=== PATIENT | female | born 1985 | race Caucasian/White ===

== ENCOUNTER 2019-10-29 12:30 | Outpatient (RCR) | payer OTHER, SELFPAY ==
--- NOTE | 2019-10-22 11:03 | PTOPEVAL ---
INITIAL PHYSICAL THERAPY EVALUATION and PLAN OF CARE Thank you for referring Camilla Mtz to [facility]. She will be seen 1x/wk x 4 wks. Please review, sign, date and return this plan of care JOLYNN. I agree with and certify that the following plan of care is medically necessary. Referring Physician Date Admitting Provider: Attending Provider: Dana Canada PA-C Referring Provider: DANA Outpatient Evaluation Start: 10/22/19 09:42 Freq: Status: Active Protocol: Document 10/22/19 09:35 GERRI (Rec: 10/22/19 10:45 GERRI [id number]) Therapy Assessment Status Assessment Status Assessment Status Evaluation Outpatient Past Medical History Past Medical History Source of Past Medical History Patient Neurological History Hx Migraine Yes Cardiovascular History Hx Hypertension Yes: during Respiratory History Hx Asthma Yes: patient reported seasonal allergy induced Gastrointestinal History Hx Gastrointestinal Disorders No Significant History Genitourinary History Hx Genitourinary Disorders No Significant History Musculoskeletal History Hx Scoliosis Yes: patient reported Endocrine History Hx Endocrine Disorders No Significant History Psychosocial History Hx Anxiety Yes Hx Depression Yes: zoloft Evaluation Information Problem Diagnosis separation of muscle, diastasis recti Onset felt immediately since daughter's , worsening last month Subjective Information Labor and delivery - didn't Query Text:As Reported By Patient/ feel any increase discomfort/ Family pain in abdomen with delivery - everything went fine. A week or so after delivery - general type of soreness - with bending, turning. Within last month - amplification of pain - even with light activities - usually with flexed posture - worse when leaning over daughter's pack and play. No change with sleeping pattern, mornings okay. During - pubic symphysis separation Prior Level of Function Activity Level (Last 3 Months) Occupation special education math teacher Hand Dominance Right Medications Home Meds (Include: OTC, RX, Vitamins, zoloft - post Herbals, Dose, Route,and Frequency)
--- NOTE | 2019-11-05 13:00 | PCPTNOTE ---
Camilla phoned yesterday to cancel all of her appointments due not liking to wear a mask - which is required. Return phone call was made in inform her that if we stayed in the treatment room, she would not have to wear the mask. No return reply has been received. Will await a few days, if still no reply - will discharge her from PT.
--- NOTE | 2019-11-12 08:21 | PCPTNOTE ---
PHYSICAL THERAPY DISCHARGE NOTE Admitting Provider: Attending Provider: Dana Canada PA-C Patient:Camilla Mtz Date of :1985 Camilla has not returned for any further treatments since 10/29/2019. She phoned 11/04/2019 to cancel her appointments due to inability to tolerate wearing a mask while in PT. I did phone her and let her know that she wouldn't have to wear the mask in the treatment room, but she has not returned to PT. Therefore she. will be discharged at this time. Patient?s initial visit was on 10/22/2019 09:30 and she had a total of 2 visits. The goals have been partially met. Thank you for referring Camilla to [facility]. Please review, sign, date and return this discharge summary JOLYNN. I have been updated about Camilla's current status and I agree with discharge from the above service at this time. Referring Physician Date
== END 2019-11-12 15:32 | disposition home or self-care (01) ==
LOC: ANHPT 12:30
PROVIDERS: PCP Family Medicine; Visit Provider Physician Assistant
DX: M62.08 Separation of muscle (nontraumatic), other site (principal)
CPT/HCPCS: 97110; 97161

== ENCOUNTER 2019-12-24 21:21 | Emergency (ER) | payer OTHER, SELFPAY ==
--- NOTE | ~2019-12-24 | CT_ITS ---
EXAMINATION: CT BRAIN W/O DATE: 12/24/2019 22:45 INDICATION: Daily headaches. TECHNIQUE: Computed tomography (CT) of the head was performed without intravenous contrast. The dose- length product was 605.33 mGy-cm. The mA was adjusted according to patient size. Iterative reconstruc tion technique was employed. COMPARISON: No prior studies for comparison. FINDINGS: Normal brain parenchymal volume for age. Normal conklin-white differentiation. No acute intrac ranial hemorrhage, infarction, mass or mass effect. No ventriculomegaly or midline shift. Midline sagittal images demonstrate a normal corpus callosum, c raniovertebral junction and sella turcica. Basilar cisterns are patent. Paranasal sinuses and mastoids are pneumatized. No depressed skull fractures. IMPRESSION: 1. No acute intracranial abnormality. Reviewed, dictated and finalized at location A.
[2019-12-24 21:32] VITALS: PULSE 84; RESP 18; TEMP 36.8; O2SAT 100
--- NOTE | 2019-12-24 22:06 | ED.HA ---
HPI - Headache General Chief Complaint: Headache Stated Complaint: CONNER for a month Time Seen by Provider: 12/24/19 22:06 Source: patient Mode of arrival: ambulatory Limitations: no limitations History of Present Illness HPI Narrative: Patient is a 34-year-old female who presents for evaluation of headache pain. Patient reports chronic, daily, severe headaches over the past month. These do not awaken her from sleep. She states she feels pain in the side of her temples that sometimes radiates to the back of her head. She denies current numbness, weakness, vision changes. No nausea or vomiting. Patient reports sensitivity to light and loud noises. Patient in the past has a history of migraine headaches, states she is set to follow with a neurologist at [facility] in [place], but does not have a follow-up appointment until February. Patient denies recent fall or trauma. No difficulty with ambulation. No thunderclap sensation to headache. No neck pain or fever. Patient states she recently saw an outpatient cover test which was negative. Related Data Home Medications Medication Instructions Recorded Confirmed sertraline 50 mg tablet 50 mg PO HS 10/09/19 norethindrone-e.estradiol-iron 1 tablet PO HS 12/24/19 [06/15 (28)] Allergies Allergy/AdvReac Type Severity Reaction Status Date / Time shellfish derived Allergy Intermediate HIVES Verified 12/24/19 21:28 Sulfa (Sulfonamide Allergy Unknown Skin Verified 12/24/19 21:28 Antibiotics) Reaction Review of Systems Review of Systems: Narrative: CONSTITUTIONAL: Denies fever, chills, or sweats. EYES: Denies visual changes, redness, or discharge. Reports sensitivity to light. ENT: Denies rhinorrhea, congestion, sore throat, or otalgia. CARDIOVASCULAR: Denies chest pain, palpitations, or edema. RESPIRATORY: Denies cough or dyspnea. GASTROINTESTINAL: Denies abdominal pain, nausea, vomiting, or diarrhea. GENITOURINARY: Denies dysuria or hematuria. SKIN: Denies rash or itching. MUSCULOSKELETAL: Denies back pain, joint pain, or myalgia. NEUROLOGIC: Reports headache, denies numbness, or weakness. [facility] Past Medical History Medical History Anxiety Depression Morbid obesity Scoliosis Skin cancer (melanoma) Surgical History Surgical History Hx of tonsillectomy Family History Family History Father Diabetes mellitus Hypertension Family history of cardiovascular disease Cerebrovascular accident Mother Hypertension Family history of elevated blood lipids Family history of hypothyroidism Family history of malignant neoplasm of thyroid Grandparent Hypertension Family history of elevated blood lipids Family history of cardiovascular disease Social History Social History Smoking status: Former smoker Alcohol intake: current Substance use: former Gender identity (if verbalized by the patient): Female Spiritual care concerns: No Exam Narrative: Exam Narrative: GENERAL: Awake, alert, conversant HEAD: Normocephalic, atraumatic. EYES: PERRLA and EOMI. ENT: Nares clear, no rhinorrhea or epistaxis. Mucous membranes moist. NECK: Supple. CHEST: No respiratory distress, breathing even and non labored HEART: Regular rate, sinus rhythm ABDOMEN:Non distended, non tender EXTREMITIES: Normal range of motion. No edema. SKIN: Warm, dry, no rash. NEURO:No focal deficits. Alert and oriented x3 Course Vital Signs Vital signs: Vital Signs Temperature 36.8 C 12/24/19 21:32 Pulse Rate 84 12/24/19 21:32 Respiratory Rate 18 12/24/19 21:32 Pulse Oximetry 100 12/24/19 21:32 Temperature 36.8 C 12/24/19 21:32 Pulse Rate 84 12/24/19 21:32 Respiratory Rate 18 12/24/19 21:32 Pulse Oximetry 100 12/24/19 21:3
[2019-12-24] MEDS: SODIUM CHLORIDE 0.9% IV 1,000 ML 999 ML IV CONT (22:26)
[2019-12-24] MEDS: METOCLOPRAMIDE HCL INJ 10 MG/2 ML VIAL IV PUSH (22:26)
[2019-12-24] MEDS: MAGNESIUM SULF 2 GM/WATER 50ML 2 GM/50 ML BAG IVPB (22:27)
--- NOTE | 2019-12-24 23:02 | PC.NURSE ---
Report received, assumed care of patient.
[2019-12-24 23:40] VITALS: BP 143/96; PULSE 74; RESP 18; O2SAT 98
== END 2019-12-24 23:35 | disposition home or self-care (01) ==
PROVIDERS: Emergency Provider Emergency Medicine; PCP Family Medicine
DX: R51 Headache (principal); F41.9 Anxiety disorder, unspecified; F32.9 Major depressive disorder, single episode, unspecified; E66.01 Morbid (severe) obesity due to excess calories; Z68.41 Body mass index [BMI] 40.0-44.9, adult; Z85.820 Personal history of malignant melanoma of skin; Z87.891 Personal history of nicotine dependence
CPT/HCPCS: 70450; 81025; 96365; 96368; 96375; 99284; J0131; J1100; J2765; J3475; J7030

== ENCOUNTER 2020-05-09 12:54 | Outpatient (CLI) | payer OTHER, SELFPAY | END 2020-05-09 12:55 | disposition home or self-care (01) | PROVIDERS: PCP Family Medicine; Visit Provider Otolaryngology | DX: H69.00 Patulous Eustachian tube, unspecified ear (principal); H90.42 Sensorineural hearing loss, unilateral, left ear, with unrestricted hearing on the contralateral side | CPT/HCPCS: 92557; 92567 ==

== ENCOUNTER 2020-10-28 14:46 | Outpatient (CLI) | payer OTHER, SELFPAY ==
--- NOTE | ~2020-10-28 | XR_ITS ---
XR sacroiliac joints min 3V DATE: 10/28/2020 15:07 INDICATION: Back pain TECHNIQUE: AP and bilateral oblique views COMPARISON: None FINDINGS: There is a transitional lumbosacral vertebra with sacralization pseudoarthrosis on the left . This may be a source of chronic low back pain. The sacroiliac joints are normal. No erosive change or ankylosis, fracture or dislocation. 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 Reviewed, dictated and finalized at location A. IMPRESSION: Transitional lumbosacral vertebra with sacralization and pseudoarth rosis on the left
== END 2020-10-28 14:47 | disposition home or self-care (01) ==
LOC: ANHIMG 14:47
PROVIDERS: PCP Family Medicine; Visit Provider Physician Assistant
DX: M53.3 Sacrococcygeal disorders, not elsewhere classified (principal)
CPT/HCPCS: 72202

== ENCOUNTER 2020-11-16 16:19 | Emergency (ER) | payer OTHER, SELFPAY ==
[2020-11-16 16:26] VITALS: BP 154/99; PULSE 92; RESP 16; TEMP 36.6; O2SAT 100
--- NOTE | 2020-11-16 17:05 | ED.URI ---
HPI - URI/Sore Throat General Chief Complaint: Upper Respiratory Infection Stated Complaint: COUGH/SINUS PRESSURE/STUFFY EARS Source: patient and RN notes reviewed Limitations: no limitations History of Present Illness HPI Narrative: The patient, a non-smoker/nondrinker, presents with congestion and cough. She comments she has a full week and a half history of nonproductive cough, nasal congestion with ear fullness and associated chills. No fever measured, wheezing [she requests inhaler refill], sore throat; She is unvaccinated- no CP, loss of taste/smell, S OB. She attributes onset of illness to unwell parents. Related Data Home Medications Medication Instructions Recorded Confirmed sertraline 50 mg tablet 75 mg PO HS tablet 06/03/20 10/28/20 Allergies Allergy/AdvReac Type Severity Reaction Status Date / Time shellfish derived Allergy Intermediate HIVES Verified 10/28/20 13:57 Sulfa (Sulfonamide Allergy Unknown Skin Verified 10/28/20 13:57 Antibiotics) Reaction Review of Systems Review of Systems: Narrative: The patient has been informed that they may have pre-hypertension or Hypertension based on a BP reading in the department. I recommend that the patient call the primary care provider listed on their discharge instructions or a physician of their choice this week to arrange follow up for further evaluation of possible pre-hypertension or Hypertension General/Constitutional: No weight loss,fever Eyes: N0: Redness,discharge Ears/Nose/Throat: No: Epistaxis,ear discharge Respiratory: Denies: Hemoptysis Gastrointestinal: No Vomiting, Bleeding-rectal Skin: No Lumps, eruption Neurologic: No Focal Weakness,Sz Hematologic: Denies: Petechiae/Purpura Psychiatric: No: Suicida ideationl All Other Systems: Reviewed and Negative [facility] Past Medical History Medical History Anxiety Depression Irritable bowel syndrome with diarrhea Morbid obesity Scoliosis Skin cancer (melanoma) Surgical History Surgical History Hx of tonsillectomy Family History Family History Father Diabetes mellitus Hypertension Family history of cardiovascular disease Cerebrovascular accident Mother Hypertension Family history of elevated blood lipids Family history of hypothyroidism Family history of malignant neoplasm of thyroid Grandparent Hypertension Family history of elevated blood lipids Family history of cardiovascular disease Social History Social History (Reviewed 10/28/20 @ 13:58 by Jimena Mclain [facility]) Second hand tobacco smoke exposure: No Alcohol intake: current Substance use: former Gender identity (if verbalized by the patient): Female Spiritual care concerns: No Comments At time of signature, agree with nursing past medical, surgical, social and family history. There is no relevant family history pertinent to the presenting complaint Exam Narrative: Exam Narrative: General Appearance: Well appearing, obese /well nourished EYE: PERRLA, Conjunctiva clear Ears: Auditory canal normal, TM normal Nose: Rhinorrhea, Mucousal erythema Mouth/Throat: MM moist, Uvula midline, Pharyngeal erythema Neck: Supple, No adenopathy Respiratory: No respiratory distress, Breath sounds equal decreased at bases, CTA without wheeze Cardiovascular: RRR, No JVD Musculoskeletal: Non tender, Normal strength Skin: Warm, Dry Neurological: A&O x3, CN II-XII intact Psychiatric: Normal mood, Normal affect Course Vital Signs Vital signs: Vital Signs Temperature 97.8 F 11/16/20 16:26 Pulse Rate 92 11/16/20 16:26 Respiratory Rate 16 11/16/20 16:26 Blood Pressure 154/99 H 11/16/20 16:26 Pulse Oximetry 100 11/16/20 16:26 Temperature 97.8 F 11/16/20 16:26 Pulse Rate 92 11/16/20 16:26 Respiratory R
[2020-11-19 16:57] LABS: SARS-CoV-2 RNA PCR Negative
== END 2020-11-16 17:10 | disposition home or self-care (01) ==
PROVIDERS: Emergency Provider Emergency Medicine; PCP Family Medicine
DX: J32.9 Chronic sinusitis, unspecified (principal); Z20.822 Contact with and (suspected) exposure to COVID-19; F41.9 Anxiety disorder, unspecified; F32.9 Major depressive disorder, single episode, unspecified; E66.01 Morbid (severe) obesity due to excess calories; Z68.42 Body mass index [BMI] 45.0-49.9, adult; Z85.820 Personal history of malignant melanoma of skin
CPT/HCPCS: 99213; C9803; G0463; U0003; U0005

== ENCOUNTER 2020-12-04 16:13 | Emergency (ER) | payer OTHER, SELFPAY ==
--- NOTE | ~2020-12-04 | XR_ITS ---
XR chest 1V portable INDICATION: Cough. TECHNIQUE: 2 view chest. FINDINGS: Shortness of breath for 5 days. History of asthma. There is mild bilateral interstitial prominence and peribronchial cuffing. There is no focal consoli dation, pleural effusion, or pneumothorax. The cardiomediastinal silhouette is normal.] IMPRESSION: 1. Findings most consistent with bronchiolitis versus an atypical or viral pneumonia. Reviewed, dictated and finalized at location A. IMPRESSION: 1. Findings most consistent with bronchiolitis versus an atypical or viral pne [facility].
[2020-12-04 16:36] VITALS: BP 148/96; PULSE 92; RESP 16; TEMP 36.2; O2SAT 99
--- NOTE | 2020-12-04 18:54 | ED.URI ---
HPI - URI/Sore Throat General Chief Complaint: Upper Respiratory Infection Stated Complaint: COVID + FEELS SOB Time Seen by Provider: 12/04/20 18:14 Source: patient and RN notes reviewed Mode of arrival: ambulatory Limitations: no limitations History of Present Illness HPI Narrative: This is a 35 year old female with history of asthma who presents for evaluation of shortness of breath and severe cough. Patient developed symptoms of COVID on Saturday. She complains of chills, cough, sinus pressure and headache. She was tested for COVID on Saturday and she was found to be positive along with other members of her family. She reports her symptoms have resolved except for cough and shortness of breath. She states she is having severe coughing spells and shortness of breath. She denies leg swelling or leg pain. She does take oral contraception MD elicited complaint: cough Related Data Home Medications Medication Instructions Recorded Confirmed albuterol sulfate INHALATION 12/04/20 12/04/20 norethindrone ac-eth estradiol tablet 12/04/20 Allergies Allergy/AdvReac Type Severity Reaction Status Date / Time shellfish derived Allergy Intermediate HIVES Verified 12/04/20 16:35 Sulfa (Sulfonamide Allergy Unknown Skin Verified 12/04/20 16:35 Antibiotics) Reaction Review of Systems Review of Systems: All systems reviewed & are unremarkable except as noted in HPI and below PMFSH Past Medical History Medical History Anxiety Depression Irritable bowel syndrome with diarrhea Morbid obesity Scoliosis Skin cancer (melanoma) Surgical History Surgical History Hx of tonsillectomy Family History Family History Father Diabetes mellitus Hypertension Family history of cardiovascular disease Cerebrovascular accident Mother Hypertension Family history of elevated blood lipids Family history of hypothyroidism Family history of malignant neoplasm of thyroid Grandparent Hypertension Family history of elevated blood lipids Family history of cardiovascular disease Social History Social History Second hand tobacco smoke exposure: No Alcohol intake: current Substance use: former Gender identity (if verbalized by the patient): Female Spiritual care concerns: No Exam Const: General: no acute distress and alert Orientation/consciousness: patient oriented x3 Eyes: EOM: EOMs intact bilaterally Resp: Effort & Inspection: normal respiratory effort and no retractions Auscultation: clear to auscultation bilaterally Cardio: Rate: regular rate Rhythm: regular rhythm Heart sounds: no murmurs GI: GI Palp: Yes Soft to palpation, No Tenderness to palpation present (GI) and No Guarding due to palpation present (GI) Auscultation: normal bowel sounds Skin: General skin exam: normal color Rashes: no rashes Neuro: General: patient oriented x3, moves all extremities and CN's II-XI intact bilaterally Psych: Mental Status: mental status grossly normal Affect: normal affect Course Reevaluation(s) Reevaluation #1: I have discussed with patient plan to discharge. She understands it is symptomatic treatment. she will be discharge with MDI and prescription for rita albert. She is 99% on room air. Date: 12/04/20 Time: 19:42 Vital Signs Vital signs: Vital Signs Temperature 97.2 F L 12/04/20 16:36 Pulse Rate 92 12/04/20 16:36 Respiratory Rate 16 12/04/20 16:36 Blood Pressure 148/96 H 12/04/20 16:36 Pulse Oximetry 99 12/04/20 16:36 Temperature 97.4 F L 12/04/20 20:26 Pulse Rate 103 H 12/04/20 20:26 Respiratory Rate 20 12/04/20 20:26 Blood Pressure 132/82 12/04/20 20:26 Pulse Oximetry 96 12/04/20 20:26 MDM - URI/Sore Throat Lab Data Attes
[2020-12-04 19:16] LABS: Basophils Percent Auto 0.2 % (0.2-1.2); Eosinophils Absolute Auto 0.1 K/mm3 (0-0.3); Eosinophils Percent Auto 2.5 % (0-4.4); Hematocrit 39.4 % (37.0-47.0); Hemoglobin 12.1 g/dL (12.0-15.0); Immature Granulocyte Absolute 0.02 K/mm3 (0.00-0.031); Immature Granulocyte Percent A 0.4 % (0-0.5); Lymphocytes Percent Auto 21.2 % (18.3-44.2); Mean Corpuscular HGB Conc 30.7 g/dl (32-36); Mean Corpuscular Hemoglobin 25.1 pg (26-34); Mean Corpuscular Volume 81.7 fl (80-100); Mean Platelet Volume 10.7 fl (7.4-10.4); Monocytes Absolute Auto 0.6 K/mm3 (0.1-0.6); Monocytes Percent Auto 10.4 % (2.6-8.5); Neutrophils Absolute Auto 3.7 K/mm3 (1.3-6.7); Neutrophils Percent Auto 65.3 % (45.5-73.1); Platelet Count Result 241 k/mm3 (150-375); Red Blood Count 4.82 M/mm3 (4.2-5.4); Red Cell Distribution Width 15.7 % (11.5-14.5); White Blood Count 5.7 K/mm3 (4.5-10.0)
[2020-12-04 19:26] LABS: Prothrombin Time 13.3 Seconds (11.1-14.7)
[2020-12-04 19:28] LABS: Partial Thromboplastin Time 33.5 SECONDS (22.3-36.8)
[2020-12-04 19:33] LABS: Alanine Aminotransferase 26 U/L (4-35); Albumin Level 4.1 g/dL (3.5-5.1); Alkaline Phosphatase 74 U/L (38-126); Anion Gap 12 mmol/L (8-16); Aspartate Amino Transferase 32 U/L (14-36); Bilirubin,Total 0.4 mg/dL (0.2-1.3); Blood Urea Nitrogen 7 mg/dL (7-17); CRP 6.1 mg/dL (<1.0); Calcium 8.3 mg/dL (8.4-10.2); Carbon Dioxide 24 mmol/L (22-30); Chloride 101 mmol/L (98-107); Estimated CRCL calculation 107 ml/min; Estimated Glomerular Filt Rate > 60; Glucose 89 mg/dL (65-105); Potassium 3.3 mmol/L (3.4-5.0); Sodium 137 mmol/L (137-145)
[2020-12-04 19:35] LABS: D Dimer 0.33 ug/mL (<0.48)
[2020-12-04 20:26] VITALS: BP 132/82; PULSE 103; RESP 20; TEMP 36.3; O2SAT 96
[2020-12-04] MEDS: BENZONATATE 100 MG CAPSULE PO (20:28)
[2020-12-04] MEDS: predniSONE 20 MG TABLET 60 MG PO (20:28)
== END 2020-12-04 20:26 | disposition home or self-care (01) ==
PROVIDERS: Emergency Provider General Practice; PCP Family Medicine
DX: U07.1 COVID-19 (principal); J12.82 Pneumonia due to coronavirus disease 2019; K58.0 Irritable bowel syndrome with diarrhea; Z85.820 Personal history of malignant melanoma of skin; E66.01 Morbid (severe) obesity due to excess calories; Z68.41 Body mass index [BMI] 40.0-44.9, adult
CPT/HCPCS: 36415; 71045; 80053; 85025; 85380; 85610; 85730; 86140; 99283; A9270; J7512

== ENCOUNTER 2020-12-09 17:26 | Inpatient (IN) | payer OTHER, SELFPAY ==
--- NOTE | ~2020-12-09 | XR_ITS ---
EXAMINATION: XR chest 1V portable DATE: 12/09/2020 17:56 INDICATION: Shortness of breath. COVID positive. TECHNIQUE: frontal view of the chest was obtained. COMPARISON: Chest radiograph dated 12/04/2020 FINDINGS: There are patchy airspace opacities throughout both lungs. No pleural effusion or pneumothorax. The c ardiomediastinal silhouette is normal. IMPRESSION: 1. New patchy bilateral lung disease most consistent with COVID pneumonia. Reviewed, dictated and finalized at location A.
[2020-12-09 17:30] VITALS: BP 131/87; PULSE 112; RESP 20; TEMP 37.8; O2SAT 89
[2020-12-09 17:40] VITALS: BP 137/83; PULSE 112; RESP 18; O2SAT 92; O2SAT 93
--- NOTE | 2020-12-09 17:42 | ECG_ITS ---
Measurements Intervals [place] Rate: 107 P: 20 MN: 154 QRS: 12 QRSD: 110 T: 0 QT: 303 QTc: 405 Interpretive Statements SINUS TACHYCARDIA BORDERLINE R WAVE PROGRESSION, ANTERIOR LEADS NONSPECIFIC T-WAVE ABNORMALITY- INFERIOR LEADS ABNORMAL ECG Electronically Signed On 12-10-2020 7:09:13 CDT by Fran Anderson D.O.
[2020-12-09 18:10] LABS: Hematocrit 36.7 % (37.0-47.0); Hemoglobin 11.2 g/dL (12.0-15.0); Mean Corpuscular HGB Conc 30.5 g/dl (32-36); Mean Corpuscular Hemoglobin 24.8 pg (26-34); Mean Corpuscular Volume 81.2 fl (80-100); Mean Platelet Volume 10.5 fl (7.4-10.4); Platelet Count Result 367 k/mm3 (150-375); Red Blood Count 4.52 M/mm3 (4.2-5.4); Red Cell Distribution Width 15.5 % (11.5-14.5); White Blood Count 7.6 K/mm3 (4.5-10.0)
[2020-12-09 18:15] LABS: Anion Gap 9 mmol/L (8-16); Blood Urea Nitrogen 10 mg/dL (7-17); Calcium 8.5 mg/dL (8.4-10.2); Carbon Dioxide 26 mmol/L (22-30); Chloride 103 mmol/L (98-107); Estimated CRCL calculation 96 ml/min; Estimated Glomerular Filt Rate > 60; Glucose 89 mg/dL (65-110); Potassium 3.1 mmol/L (3.4-5.0); Sodium 138 mmol/L (137-145)
[2020-12-09] MEDS: DEXAMETHASONE SOD PHOS INJ 4 MG/ML VIAL 6 MG IV PUSH (18:17)
[2020-12-09] MEDS: SODIUM CHLORIDE 0.9% IV 1,000 ML 999 ML IV CONT (18:18)
[2020-12-09 18:22] LABS: Alveolar/Arterial O2 Gradient 53.7 mmHg; Base Excess ABG 0.6 mEq/l (+/-2.0); Carboxyhemoglobin 0.4 % THb (0-2.0); Device ROOM AIR; Fractional Inspired Oxygen 21 %; HCO3 ABG 23.2 mEq/l (22.0-26.0); Methemoglobin ABG 0.1 %THb (0-1.5); Modified Allen's Test Pass; Oxygen Content ABG 15.4 %vol (16.0-22.0); Oxygen Saturation ABG 92.9 % (95.0-100.0); PCO2 ABG 30.9 mmHg (35.0-45.0); PO2 FiO2 Ratio Arterial Blood 2.81 %; Reduced Hemoglobin 8.5 %THb (0-5.0); Site Drawn LEFT RADIAL; pH ABG 7.493 (7.350-7.450)
--- NOTE | 2020-12-09 18:30 | ED.GENADULT ---
HPI - General Adult General Chief complaint: Upper Respiratory Infection Stated complaint: COVID + SOB Time Seen by Provider: 12/09/20 17:57 Source: patient and RN notes reviewed Mode of arrival: ambulatory Limitations: no limitations History of Present Illness HPI narrative: Patient a 35-year-old female who presents to emergency department Covid positive symptoms began on the fourth has had congestion rhinorrhea body aches nausea some loose stools. Patient notes history of adult asthma. Has attempted [id number] medications. Was not vaccinated for Covid. Patient notes shortness of breath and generalized aches and headache Related Data Home Medications Medication Instructions Recorded Confirmed albuterol sulfate INHALATION 12/04/20 12/04/20 norethindrone ac-eth estradiol tablet 12/04/20 Allergies Allergy/AdvReac Type Severity Reaction Status Date / Time shellfish derived Allergy Intermediate HIVES Verified 12/09/20 17:42 Sulfa (Sulfonamide Allergy Unknown Skin Verified 12/09/20 17:42 Antibiotics) Reaction Review of Systems Review of Systems: All systems reviewed & are unremarkable except as noted in HPI and below PMFSH Past Medical History Medical History Anxiety Depression Irritable bowel syndrome with diarrhea Morbid obesity Scoliosis Skin cancer (melanoma) Surgical History Surgical History Hx of tonsillectomy Family History Family History Father Diabetes mellitus Hypertension Family history of cardiovascular disease Cerebrovascular accident Mother Hypertension Family history of elevated blood lipids Family history of hypothyroidism Family history of malignant neoplasm of thyroid Grandparent Hypertension Family history of elevated blood lipids Family history of cardiovascular disease Social History Social History Second hand tobacco smoke exposure: No Alcohol intake: current Substance use: former Gender identity (if verbalized by the patient): Female Spiritual care concerns: No Exam Narrative: Exam Narrative: GENERAL: Ill-appearing, obese, and in no acute distress. HEAD: Normocephalic, atraumatic. EYES: PERRLA and EOMI. ENT: Nares clear, no rhinorrhea or epistaxis. Mucous membranes moist. NECK: Supple. No adenopathy or masses. No carotid bruits or JVD CHEST: Clear to auscultation. No respiratory distress. No wheezes rales or rhonchi HEART: Regular rate and rhythm. No murmur heard. Normal peripheral pulses. EXTREMITIES: Normal range of motion. No edema. SKIN: Warm, dry, no rash. NEURO: No focal deficits. Alert and oriented x3. Cranial nerves II through XII grossly intact PSYCH: Normal mood and affect. Course Course Emergency Course: Patient will be brought in the hospital given her hypoxemia secondary to her Covid pneumonia, at this time she is in the room ill-appearing but does not appear distressed she is not requiring oxygen at this time remdesivir and plasma have been ordered per request meant of hospitalist she will be treated with antibiotics as well. Patient is aware of this and has been seen by the hospitalist in the emergency department Consultations Consultation #1: Discussed case with Dr. Reynoso who would like the patient to be admitted would like plasma remdesivir and antibiotics admitted to the medical floor will see the patient in the emergency department Date: 12/09/20 Time: 20:24 Vital Signs Vital signs: Vital Signs Temperature 100.1 F H 12/09/20 17:30 Pulse Rate 112 H 12/09/20 17:30 Respiratory Rate 20 12/09/20 17:30 Blood Pressure 131/87 12/09/20 17:30 Pulse Oximetry 89 L 12/09/20 17:30 Temperature 100.1 F H 12/09/20 17:30 Pulse Rate 112 H 12/09/20 17:40 Respiratory Rate 18 12/09/20 1
[2020-12-09 18:44] LABS: Lactic Acid Reflex 0.9 mmol/L (0.7-2.1)
[2020-12-09 18:46] LABS: Anisocytosis 1+ (NORMAL); Band Neutrophils Percent 5 % (0-6); Lymphocytes Absolute Manual 1.29 K/mm3 (1.1-4.5); Monocytes Absolute Manual 0.45 K/mm3 (0.1-0.90); Monocytes Percent Manual 6 % (3-9); Neutrophils Absolute Manual 5.85 K/mm3 (1.7-7.2); Neutrophils Percent Manual 72 % (46-73); Platelet Estimate Adequate (Adequate); Total Cells Counted 100
[2020-12-09 18:49] LABS: Prothrombin Time 13.5 Seconds (11.1-14.7)
[2020-12-09 18:57] LABS: D Dimer 0.41 ug/mL (<0.48)
[2020-12-09 20:09] LABS: Alanine Aminotransferase 27 U/L (4-35); Estimated CRCL calculation 96 ml/min; Estimated Glomerular Filt Rate > 60
[2020-12-09] MEDS: SODIUM CHLORIDE 0.9% IV 250 ML 30 ML IV CONT (20:38)
--- NOTE | 2020-12-09 20:38 | PM.IMHP ---
H&P: HPI History of Present Illness Date/Time: 12/09/20 20:38 Chief Complaint: Shortness of breath Narrative: This is a 35-year-old female with past medical history significant for asthma, obesity.Patient presented to the emergency room due to worsening shortness of breath explains that every very sick with COVID at home every very has tested positive for COVID she has been feeling sick since November had prior visit to the emergency room has notice worsening shortness of breath with rigors chills poor appetite dry cough productive of sputum at times would which is clear phlegm today she tested her oxygen saturation at home and measured at 85%. she has been taking Tylenol Advil and Robitussin at home to help with the symptoms. she denies any nausea vomiting or diarrhea. upon presentation to emergency room she was found to have a saturation of 89%. Patient tested positive for COVID on November 30. Preliminary workup was significant for chest x-ray with infiltrates. Review of Systems Review of Systems: Narrative: shortness of breath dry cough general malaise poor appetite fevers chills rigors Constitutional: Constitutional: Reports chills, Reports fever(s), Reports lethargy, Reports malaise and Reports poor appetite Eyes: Eyes: Denies change in vision ENT: Denies dysphagia, Denies nasal congestion, Denies nasal discharge, Denies nasal obstruction and Denies odynophagia Cardiovascular: Cardiovascular: Denies irregular heart rhythm, Denies radiating jaw, neck or arm pain, Denies palpitations and Denies dyspnea on exertion Respiratory: Respiratory: Reports cough and Reports dyspnea Gastrointestinal: Gastrointestinal: Denies diarrhea, Denies nausea and Denies vomiting Genitourinary: Genitourinary: Reports no additional female genitourinary complaints Musculoskeletal: Musculoskeletal: Reports myalgias Integumentary/Breasts: Skin/Breast: Reports system reviewed and no additional complaints, except as docu Neurologic: Reports system reviewed and no additional complaints, except as documented Psychiatric: Psychiatric: Reports no additional psychiatric complaints Endocrine: Endocrine: Reports no additional endocrine complaints Hematologic/Lymphatic: Hematologic/Lymphatic: Reports no additional hematologic/lymphatic complaints Allergic/Immunologic: Allergic/Immunologic: Reports no additional allergic/immunologic complaints PMFSH Past Medical History Medical History Anxiety Depression Irritable bowel syndrome with diarrhea Morbid obesity Scoliosis Skin cancer (melanoma) Surgical History Surgical History Hx of tonsillectomy Family History Family History Father Diabetes mellitus Hypertension Family history of cardiovascular disease Cerebrovascular accident Mother Hypertension Family history of elevated blood lipids Family history of hypothyroidism Family history of malignant neoplasm of thyroid Grandparent Hypertension Family history of elevated blood lipids Family history of cardiovascular disease Social History Social History Second hand tobacco smoke exposure: No Alcohol intake: current Substance use: former Gender identity (if verbalized by the patient): Female Spiritual care concerns: No Meds Home Medications and Allergies Home Medications Medication Instructions Recorded Confirmed Type albuterol sulfate 2 puff INHALATION QID PRN #6.7 g 12/04/20 Rx albuterol sulfate INHALATION 12/04/20 12/04/20 History benzonatate [Tessalon Perles] 100 mg PO TID PRN #14 cap 12/04/20 Rx norethindrone ac-eth estradiol tablet 12/04/20 History prednisone 50 mg PO DAILY #4 tablet 12/04/20 Rx Allergies Allergy/AdvReac Type Severity Reaction Status Date / Time shellfish
[2020-12-09 20:45] VITALS: BP 125/83; PULSE 99; RESP 28; O2SAT 94
--- NOTE | 2020-12-09 20:56 | PC.NURSE ---
Pt request for Xanax, ERP aware. Due to respiratory status ERP not to order Xanax at this time.
[2020-12-09 22:05] VITALS: BP 129/81; PULSE 90; RESP 18; TEMP 36.4; O2SAT 92
[2020-12-09] MEDS: FAMOTIDINE 20 MG/2 ML VIAL IV PUSH (22:55)
[2020-12-09] MEDS: REMDESIVIR 200 MG/NS 250 ML 200 MG/250 ML BAG 250 MG IVPB (22:55)
[2020-12-09] MEDS: ALPRAZolam (*CRX) 0.5 MG TABLET PO (22:56)
--- NOTE | 2020-12-09 23:59 | ADMGEN ---
This patient, Camilla Mtz, was admitted to [facility] Surg Room 331-01. Patient/family oriented to hospital policies and general routines including ID bracelet, bed and alarms, visiting hours, pain management, procedures, bathroom and other care routines, personal items, smoking policy, room service/diet, and visiting hours. Information on how to activate the Rapid Response Team has been discussed. Patient/Family are encouraged to report perceived risks to care and to ask questions if they do not understand what they are told or what they should do.
[2020-12-10] VITALS (15 sets, daily range): BP systolic 122–143; BP diastolic 61–91; PULSE 79–97; RESP 16–20; TEMP 35.9–36.8; O2SAT 91–96
[2020-12-10] MEDS: LACTATED RINGERS 1,000 ML 75 ML IV CONT (04:15)
[2020-12-10 07:20] LABS: Basophils Percent Auto 0.2 % (0.2-1.2); Hemoglobin 10.5 g/dL (12.0-15.0); Immature Granulocyte Absolute 0.14 K/mm3 (0.00-0.031); Immature Granulocyte Percent A 2.3 % (0-0.5); Lymphocytes Absolute Auto 1.36 K/mm3 (0.9-3.2); Lymphocytes Percent Auto 22.6 % (18.3-44.2); Mean Corpuscular Hemoglobin 24.7 pg (26-34); Mean Corpuscular Volume 82.4 fl (80-100); Mean Platelet Volume 10.3 fl (7.4-10.4); Monocytes Absolute Auto 0.5 K/mm3 (0.1-0.6); Monocytes Percent Auto 7.5 % (2.6-8.5); Neutrophils Absolute Auto 4.1 K/mm3 (1.3-6.7); Neutrophils Percent Auto 67.4 % (45.5-73.1); Platelet Count Result 380 k/mm3 (150-375); Red Blood Count 4.25 M/mm3 (4.2-5.4); Red Cell Distribution Width 15.5 % (11.5-14.5)
[2020-12-10 07:32] LABS: Alanine Aminotransferase 34 U/L (4-35); Albumin Level 3.6 g/dL (3.5-5.1); Alkaline Phosphatase 60 U/L (38-126); Anion Gap 7 mmol/L (8-16); Aspartate Amino Transferase 40 U/L (14-36); Bilirubin,Total 0.3 mg/dL (0.2-1.3); Blood Urea Nitrogen 7 mg/dL (7-17); Calcium 8.3 mg/dL (8.4-10.2); Carbon Dioxide 27 mmol/L (22-30); Chloride 108 mmol/L (98-107); Estimated CRCL calculation 121 ml/min; Estimated Glomerular Filt Rate > 60; Glucose 103 mg/dL (65-110); Sodium 142 mmol/L (137-145)
[2020-12-10 08:13] LABS: Large Platelets Present; Platelet Estimate Adequate (Adequate)
[2020-12-10 08:28] LABS: INR 1.1; Prothrombin Time 13.7 Seconds (11.1-14.7)
[2020-12-10] MEDS: FAMOTIDINE 20 MG/2 ML VIAL IV PUSH (09:28)
--- NOTE | 2020-12-10 09:53 | PM.IMPN ---
Progress Note: A&P Assessment and Plan (1) 2019 novel coronavirus-infected pneumonia (NCIP): Code(s): U07.1 - COVID-19; J12.82 - Pneumonia due to coronavirus disease 2018 Status: Acute Assessment and Plan: admit to general medical floor vitals as per unit protocol up at che 1800 calorie restricted diet Remdesivir 100mg Daily, Dexamethasone 6mg PO daily Rocephin + Zithromax will be DC'd for now Blood culture not obtained, however, no signs or symptoms of a bacteria infection WBC upon admission 7.6 now 6.0 breathing treatment airborne and droplet precaution isolation (2) Asthma: Code(s): J45.909 - Unspecified asthma, uncomplicated Status: Acute Assessment and Plan: breathing treatment not actively wheezing (3) Anxiety: Code(s): F41.9 - Anxiety disorder, unspecified Status: Acute Assessment and Plan: Xanax p.r.n. (4) Morbid obesity: Code(s): E66.01 - Morbid (severe) obesity due to excess calories Status: Acute Assessment and Plan: lifestyle and diet modification 1800 calorie restrictive diet (5) Acute respiratory failure with hypoxemia: Code(s): J96.01 - Acute respiratory failure with hypoxia Status: Acute Assessment and Plan: likely secondary to COVID Supplemental oxygen wean to keep SpO2 greater than 94% incentive spirometer IPAP breathing treatments SP O2 spot check trend SpO2 Time Spent With Patient Time with patient: Greater than 35 minutes Subjective Date/time seen: 12/10/20 09:53 Interval history: This is a 35-year-old female with past medical history significant for asthma, obesity.Patient presented to the emergency room due to worsening shortness of breath.Today patient stated that she is having hard time taking deep breath and she still short of breath with activity. She is currently on 2 L nasal cannula and states that her lungs feel very tight. She denies chest pain weakness fatigue. However she does state that she does have altered sense of taste and smell That has caused her to have a decrease in appetite. She also stated she has a cough that is producing clear sputum. this patient was never officially tested for COVID however 3 of her family members all tested positive which she was told that she did need to be tested due to everybody having symptoms. Patient was also concerned about taking her home contraceptives due to the risk of migraine. Risk and benefits were explained her about contraceptive use and COVID with coagulation factors. Review of Systems Review of Systems: All systems reviewed & are unremarkable except as noted in HPI and below Exam Const: General: cooperative, healthy appearing, comfortable, no acute distress, well developed, alert, awake, Physically active and ill appearing acutely Nutritional Appearance: average body habitus, obese and overweight Orientation/consciousness: oriented to person, oriented to place, oriented to time and patient oriented x3 Limitations: no limitations HENMT: Head: normal to inspection, normocephalic and atraumatic Ears: hearing grossly normal bilaterally General nose exam: Normal external nose present Face and sinus: normal facial exam Eyes: General: appearance normal, both eyes and all related structures Sclera: sclerae normal Pupils: Equal, round and reactive pupils present EOM: EOMs intact bilaterally Neck: Neck: full ROM, no lymphadenopathy and no JVD Thyroid: thyroid normal Lymphatic: no lymphadenopathy noted Resp: Effort & Inspection: normal respiratory effort and able to speak in complete sentences Auscultation: wheezes expiratory wheezes, inspiratory wheezes and upper bilaterally and diminished lung sounds bilateral throughout Cardio: Jugular venous distension: no JVD Rate: regular rate Rhythm: regular rhythm Heart sounds: S1 normal heart sound present and S2 nor
[2020-12-10] MEDS: ENOXAPARIN 40 MG/0.4 ML SYRINGE SUB-Q ×2 (11:54→21:58)
[2020-12-10] MEDS: DEXAMETHASONE 2 MG TABLET 6 MG PO (11:55)
[2020-12-10] MEDS: REMDESIVIR 100 MG/NS 250 ML 100 MG/250 ML BAG 250 MG IVPB (21:58)
[2020-12-10] MEDS: FAMOTIDINE 20 MG TABLET PO (21:58)
[2020-12-11] VITALS (7 sets, daily range): BP systolic 135–152; BP diastolic 78–96; PULSE 76–96; RESP 18–20; TEMP 35.9–37.2; O2SAT 89–97
[2020-12-11 07:04] LABS: Hematocrit 35.9 % (37.0-47.0); Hemoglobin 10.8 g/dL (12.0-15.0); Mean Corpuscular HGB Conc 30.1 g/dl (32-36); Mean Corpuscular Hemoglobin 24.6 pg (26-34); Mean Corpuscular Volume 81.8 fl (80-100); Platelet Count Result 406 k/mm3 (150-375); Red Blood Count 4.39 M/mm3 (4.2-5.4); Red Cell Distribution Width 15.3 % (11.5-14.5); White Blood Count 9.4 K/mm3 (4.5-10.0)
[2020-12-11 07:18] LABS: Alanine Aminotransferase 38 U/L (4-35); Albumin Level 3.4 g/dL (3.5-5.1); Alkaline Phosphatase 63 U/L (38-126); Anion Gap 9 mmol/L (8-16); Aspartate Amino Transferase 33 U/L (14-36); Bilirubin,Total 0.3 mg/dL (0.2-1.3); Blood Urea Nitrogen 9 mg/dL (7-17); Calcium 8.7 mg/dL (8.4-10.2); Carbon Dioxide 27 mmol/L (22-30); Chloride 105 mmol/L (98-107); Estimated CRCL calculation 121 ml/min; Estimated Glomerular Filt Rate > 60; Glucose 113 mg/dL (65-110); Magnesium 1.9 mg/dL (1.6-2.3); Potassium 3.3 mmol/L (3.4-5.0); Sodium 141 mmol/L (137-145)
[2020-12-11 08:00] LABS: INR 1.1; Prothrombin Time 13.8 Seconds (11.1-14.7)
[2020-12-11] MEDS: DEXAMETHASONE 2 MG TABLET 6 MG PO (09:09)
[2020-12-11] MEDS: FAMOTIDINE 20 MG TABLET PO ×2 (09:09→21:47)
--- NOTE | 2020-12-11 10:32 | PM.IMPN ---
Progress Note: A&P Assessment and Plan (1) 2019 novel coronavirus-infected pneumonia (NCIP): Code(s): U07.1 - COVID-19; J12.82 - Pneumonia due to coronavirus disease 2019 Status: Acute Assessment and Plan: admit to general medical floor vitals as per unit protocol up at che 1800 calorie restricted diet Remdesivir 100mg Daily, Dexamethasone 6mg PO daily Rocephin + Zithromax will be DC'd for now Blood culture not obtained, however, no signs or symptoms of a bacteria infection WBC upon admission 7.6 now 6.0 breathing treatment airborne and droplet precaution isolation Supplemental oxygen to maintain saturation above 92%. (2) Asthma: Code(s): J45.909 - Unspecified asthma, uncomplicated Status: Acute Assessment and Plan: breathing treatment not actively wheezing (3) Anxiety: Code(s): F41.9 - Anxiety disorder, unspecified Status: Acute Assessment and Plan: Xanax p.r.n. (4) Morbid obesity: Code(s): E66.01 - Morbid (severe) obesity due to excess calories Status: Acute Assessment and Plan: lifestyle and diet modification 1800 calorie restrictive diet (5) Acute respiratory failure with hypoxemia: Code(s): J96.01 - Acute respiratory failure with hypoxia Status: Acute Assessment and Plan: likely secondary to COVID Supplemental oxygen wean to keep SpO2 greater than 94% incentive spirometer IPAP breathing treatments SP O2 spot check trend SpO2 Subjective Date/time seen: 12/11/20 10:05 Interval history: This is a 35-year-old female with past medical history significant for asthma, obesity.Patient presented to the emergency room due to worsening shortness of breath. this morning patient said she feels a lot better than she has. She said she still gets short of breath when she was the bathroom or exerts herself at all however when she rests and sits down she gets better. She said that she feels better than she has but she is not ready to go home. However patient is still on 2 L nasal cannula. Patient still does have a cough as well with no production. Patient denies chest pain, nausea, vomiting, diarrhea, constipation, lightheadedness, dizziness, syncope or falls. Review of Systems Review of Systems: All systems reviewed & are unremarkable except as noted in HPI and below Exam Const: General: cooperative, healthy appearing, comfortable, no acute distress, well developed, alert, awake, Physically active and ill appearing acutely Nutritional Appearance: average body habitus, obese and overweight Orientation/consciousness: oriented to person, oriented to place, oriented to time and patient oriented x3 Limitations: no limitations HENMT: Head: normal to inspection, normocephalic and atraumatic Ears: hearing grossly normal bilaterally General nose exam: Normal external nose present Face and sinus: normal facial exam Eyes: General: appearance normal, both eyes and all related structures Sclera: sclerae normal Pupils: Equal, round and reactive pupils present EOM: EOMs intact bilaterally Neck: Neck: full ROM, no lymphadenopathy and no JVD Thyroid: thyroid normal Lymphatic: no lymphadenopathy noted Resp: Effort & Inspection: normal respiratory effort and able to speak in complete sentences Auscultation: wheezes expiratory wheezes, inspiratory wheezes and upper bilaterally and diminished lung sounds bilateral throughout Cardio: Jugular venous distension: no JVD Rate: regular rate Rhythm: regular rhythm Heart sounds: S1 normal heart sound present and S2 normal heart sound present GI: Inspection: obesity : General: Yes deferred Skin: Rashes: no rashes Wounds: no wounds Neuro: General: oriented to person, oriented to place, oriented to time, patient oriented x3 and CN's II-XI intact bilaterally Cranial nerves: Yes CN's II-XII intact bilaterally and
[2020-12-11] MEDS: ENOXAPARIN 40 MG/0.4 ML SYRINGE SUB-Q ×2 (10:39→21:47)
[2020-12-11] MEDS: REMDESIVIR 100 MG/NS 250 ML 100 MG/250 ML BAG 250 MG IVPB (21:46)
[2020-12-12] VITALS: BP 137/62; PULSE 84; RESP 18; TEMP 36.4; O2SAT 93
[2020-12-12 04:00] VITALS: BP 149/97; PULSE 70; PULSE 74; RESP 20; TEMP 36.2
[2020-12-12 06:54] LABS: Hematocrit 36.7 % (37.0-47.0); Hemoglobin 11.3 g/dL (12.0-15.0); Mean Corpuscular HGB Conc 30.8 g/dl (32-36); Mean Corpuscular Hemoglobin 24.8 pg (26-34); Mean Corpuscular Volume 80.7 fl (80-100); Mean Platelet Volume 10.3 fl (7.4-10.4); Platelet Count Result 432 k/mm3 (150-375); Red Blood Count 4.55 M/mm3 (4.2-5.4); Red Cell Distribution Width 15.2 % (11.5-14.5); White Blood Count 12.5 K/mm3 (4.5-10.0)
[2020-12-12 06:56] LABS: INR 1.1; Prothrombin Time 14.3 Seconds (11.1-14.7)
[2020-12-12 07:01] LABS: Alanine Aminotransferase 46 U/L (4-35); Albumin Level 3.4 g/dL (3.5-5.1); Alkaline Phosphatase 60 U/L (38-126); Anion Gap 10 mmol/L (8-16); Aspartate Amino Transferase 32 U/L (14-36); Bilirubin,Total 0.3 mg/dL (0.2-1.3); Blood Urea Nitrogen 11 mg/dL (7-17); Calcium 8.7 mg/dL (8.4-10.2); Carbon Dioxide 30 mmol/L (22-30); Chloride 102 mmol/L (98-107); Estimated CRCL calculation 121 ml/min; Estimated Glomerular Filt Rate > 60; Glucose 83 mg/dL (65-110); Magnesium 1.8 mg/dL (1.6-2.3); Potassium 3.5 mmol/L (3.4-5.0); Sodium 142 mmol/L (137-145)
[2020-12-12 07:21] LABS: Band Neutrophils Percent 4 % (0-6); Lymphocytes Absolute Manual 2.25 K/mm3 (1.1-4.5); Metamyelocytes Percent 1 %; Monocytes Absolute Manual 0.87 K/mm3 (0.1-0.90); Monocytes Percent Manual 7 % (3-9); Neutrophils Absolute Manual 9.25 K/mm3 (1.7-7.2); Neutrophils Percent Manual 70 % (46-73); Total Cells Counted 100
[2020-12-12 08:00] VITALS: BP 139/47; PULSE 70; PULSE 84; RESP 20; TEMP 36.8; O2SAT 91
[2020-12-12] MEDS: MAGNESIUM SULF 2 GM/WATER 50ML 2 GM/50 ML BAG IVPB (09:00)
[2020-12-12] MEDS: DEXAMETHASONE 2 MG TABLET 6 MG PO (09:03)
[2020-12-12] MEDS: FAMOTIDINE 20 MG TABLET PO (09:03)
[2020-12-12] MEDS: ENOXAPARIN 40 MG/0.4 ML SYRINGE SUB-Q (09:03)
--- NOTE | 2020-12-12 09:19 | PM.DS ---
DS: Admitting Diagnosis Admitting Diagnosis Admitting Diagnosis: COVID 19 DS: Discharge Diagnosis Discharge Diagnosis (1) 2019 novel coronavirus-infected pneumonia (NCIP): Code(s): U07.1 - COVID-19; J12.82 - Pneumonia due to coronavirus disease 2019 Status: Acute Assessment and Plan: admit to general medical floor vitals as per unit protocol up at che 1800 calorie restricted diet Remdesivir 100mg Daily, Dexamethasone 6mg PO daily Rocephin + Zithromax will be DC'd for now Blood culture not obtained, however, no signs or symptoms of a bacteria infection WBC upon admission 7.6 now 6.0 breathing treatment airborne and droplet precaution isolation Supplemental oxygen to maintain saturation above 92%. Will DC patient with Decadron 6mg PO x 5 days (2) Asthma: Code(s): J45.909 - Unspecified asthma, uncomplicated Status: Acute Assessment and Plan: breathing treatment not actively wheezing Talked to patient about following up with pulmonology if unable to control (3) Anxiety: Code(s): F41.9 - Anxiety disorder, unspecified Status: Acute Assessment and Plan: Xanax p.r.n. (4) Morbid obesity: Code(s): E66.01 - Morbid (severe) obesity due to excess calories Status: Acute Assessment and Plan: lifestyle and diet modification 1800 calorie restrictive diet (5) Acute respiratory failure with hypoxemia: Code(s): J96.01 - Acute respiratory failure with hypoxia Status: Acute Assessment and Plan: likely secondary to COVID Supplemental oxygen wean to keep SpO2 greater than 94% incentive spirometer IPAP breathing treatments SP O2 spot check trend SpO2 DS: Summary Hospital Course Hospital Course: This is a 35-year-old female with past medical history significant for asthma, obesity.Patient presented to the emergency room due to worsening shortness of breath. patient has been treated with Decadron, remdesivir, And oxygen. All labs have remained stable. patient was on oxygen for for majority of her stay. upon arrival to the emergency room patient was 37.8? C with a heart rate of 112 respiratory rate of 20 and blood pressure of 131/87 with a pulse oximetry of 89% on room air. Patient was placed on 2 L of oxygen at that time and was successfully weaned off oxygen yesterday 12/11/20. patient is currently doing better with a temperature of 36.8? C a pulse rate of 84 respiratory rate of 20 and a blood pressure 139/47 with a pulse oximetry of 91% on room air. I did talk to the patient about taking a rest and breaks between activities. Patient stated that she was ready to go home and she feels better today. Appetite is strong with no loss of taste or smell. Patient is also been able to walk and still does have some shortness of breath with exertion but it has been way better than when she 1st came in. Status at Discharge Functional status at discharge: independent ambulation Overall status at discharge: patient is back to baseline Time Spent with Patient Time attestation: Total time spent providing and/or coordinating discharge services: 36 minutes Time spent: Greater than 30 minutes Specific discharge activities: chart review, lab review, diagnostic testing, education, documentation, physical exam Exam Const: General: cooperative, healthy appearing, comfortable, no acute distress, well developed, alert, awake, Physically active and ill appearing acutely Nutritional Appearance: average body habitus, obese and overweight Orientation/consciousness: oriented to person, oriented to place, oriented to time and patient oriented x3 Limitations: no limitations HENMT: Head: normal to inspection, normocephalic and atraumatic Ears: hearing grossly normal bilaterally General nose exam: Normal external nose present Face and sinus: normal facial exam Eyes: General: appearance
[2020-12-15 13:17] LABS: Prolactin 6.7 ng/mL (***)
== END 2020-12-12 10:34 | disposition home or self-care (01) | DRG 137 ==
LOC: ANHED 20:27 → ANH3MEDSUR 12-11 11:42
PROVIDERS: Emergency Medicine Emergency Medical Services; Admitting Provider Internal Medicine; Emergency Provider Emergency Medicine; PCP Family Medicine; Visit Provider Nurse Practitioner
DX: U07.1 COVID-19 (principal); J12.82 Pneumonia due to coronavirus disease 2019; J96.01 Acute respiratory failure with hypoxia; J45.909 Unspecified asthma, uncomplicated; F41.9 Anxiety disorder, unspecified; E66.01 Morbid (severe) obesity due to excess calories; Z68.41 Body mass index [BMI] 40.0-44.9, adult; Z85.828 Personal history of other malignant neoplasm of skin; M41.9 Scoliosis, unspecified; K58.0 Irritable bowel syndrome with diarrhea; F32.9 Major depressive disorder, single episode, unspecified
CPT/HCPCS: 36415; 36430; 36600; 71045; 80048; 80053; 82375; 82565; 82805; 83050; 83605; 83735; 84146; 84460; 85025; 85027; 85380; 85610; 85730; 86900; 86901; 93005; 94667; 96361; 96365; 96375; 99285; A9270; J0131; J0456; J0696; J1100; J1650; J3475; J7030; J7050; J7120; J8540; P9059

== ENCOUNTER 2021-01-23 15:05 | Outpatient (CLI) | payer OTHER, SELFPAY ==
--- NOTE | ~2021-01-23 | XR_ITS ---
EXAMINATION: XR chest 2V DATE: 01/23/2021 15:20 INDICATION: COVID-19 pneumonia. TECHNIQUE: Frontal and lateral views of the chest were obtained. COMPARISON: Chest single view 12/09/2020 FINDINGS: The chest demonstrates clear lungs without pneumonia, pleural effusion, or pneumothorax. Th e heart size is normal. IMPRESSION: 1. No acute cardiopulmonary disease. Reviewed, dictated and finalized at location A.
== END 2021-01-23 15:06 | disposition home or self-care (01) ==
LOC: ANHIMG 15:07
PROVIDERS: PCP Family Medicine; Visit Provider Family Medicine
DX: J12.82 Pneumonia due to coronavirus disease 2019 (principal); U07.1 COVID-19
CPT/HCPCS: 71046

== ENCOUNTER 2021-09-13 15:26 | Emergency (ER) | payer OTHER, SELFPAY ==
[2021-09-13 15:34] VITALS: BP 144/98; PULSE 85; RESP 20; TEMP 36.6; O2SAT 100
--- NOTE | 2021-09-13 15:34 | ED.URI ---
HPI - URI/Sore Throat General Chief Complaint: Upper Respiratory Infection Stated Complaint: COUGH Time Seen by Provider: 09/13/21 15:34 Source: patient Mode of arrival: ambulatory Limitations: no limitations History of Present Illness HPI Narrative: 36-year-old female presents with complaint of nasal congestion, sinus pressure, cough, and postnasal drip for 1 week. Had a telehealth visit with [facility] 1 day after symptoms started and was prescribed a Z-Keanu. Reports some improvement to sinus congestion but still coughing. Reports history of allergy induced asthma. Uses her albuterol inhaler only 2-3 times a year. Is taking daily antihistamines. States last year when this happened she needed steroids. Afebrile. Reports cough is worse with coughing, activities. All systems reviewed and negative except as noted above. Related Data Home Medications Medication Instructions Recorded Confirmed norethindrone ac-eth estradiol 1 tablet PO DAILY 12/04/20 09/01/21 sertraline 20 mg/mL oral 20 mg PO DAILY 08/04/21 09/01/21 concentrate Allergies Allergy/AdvReac Type Severity Reaction Status Date / Time shellfish derived Allergy Intermediate HIVES Verified 08/28/21 14:54 Sulfa (Sulfonamide Allergy Unknown Skin Verified 08/28/21 14:54 Antibiotics) Reaction Review of Systems Review of Systems: CONSTITUTIONAL: Denies fever, chills, or sweats. EYES: Denies visual changes, redness, or discharge. ENT: Reports rhinorrhea, congestion, sore throat. Denies otalgia. CARDIOVASCULAR: Denies chest pain, palpitations, or edema. RESPIRATORY: Reports cough. Denies dyspnea. GASTROINTESTINAL: Denies abdominal pain, nausea, vomiting, or diarrhea. GENITOURINARY: Denies dysuria or hematuria. SKIN: Denies rash or itching. MUSCULOSKELETAL: Denies back pain, joint pain, or myalgia. NEUROLOGIC: Denies headache, numbness, or weakness. PSYCHIATRIC: Denies anxiety or depression. All other systems reviewed are negative, except as documented in HPI. [facility] Past Medical History Medical History Anxiety Basal cell carcinoma Depression Irritable bowel syndrome with diarrhea Morbid obesity Scoliosis Surgical History Surgical History History of bilateral breast reduction surgery History of Mohs micrographic surgery for skin cancer Hx of tonsillectomy Family History Family History Father Diabetes mellitus Hypertension Family history of cardiovascular disease Cerebrovascular accident Mother Hypertension Family history of elevated blood lipids Family history of hypothyroidism Family history of malignant neoplasm of thyroid Grandparent Hypertension Family history of elevated blood lipids Family history of cardiovascular disease Social History Social History Smoking status: Former smoker Tobacco type: cigarettes Second hand tobacco smoke exposure: No Alcohol intake: never Substance use: never Additional occupation/education comments: Teacher Gender identity (if verbalized by the patient): Female Spiritual care concerns: No Comments At time of signature, agree with nursing past medical, surgical, social and family history. There is no relevant family history pertinent to the presenting complaint. Exam Narrative: GENERAL: This is a well-nourished, well-developed patient, in no apparent distress. HEAD: normocephalic, atraumatic. EYES: PERRL. Sclera clear/white. Vision is grossly intact. EARS: External ears normal, auditory canals clear and without drainage, TMs normal without perforation. Hearing grossly intact. NOSE: External nose normal with clear nasal drainage with erythema to both nares. THROAT: Mucous membranes moist, no erythema to posterior pharynx, clear postnasal drainage noted. NECK: Ne
== END 2021-09-13 15:47 | disposition home or self-care (01) ==
PROVIDERS: Emergency Provider Nurse Practitioner Family; PCP Family Medicine
DX: J45.901 Unspecified asthma with (acute) exacerbation (principal); Z87.891 Personal history of nicotine dependence; F41.9 Anxiety disorder, unspecified; F32.A Depression, unspecified; E66.01 Morbid (severe) obesity due to excess calories; Z68.41 Body mass index [BMI] 40.0-44.9, adult; M41.9 Scoliosis, unspecified; Z85.828 Personal history of other malignant neoplasm of skin
CPT/HCPCS: 99213; G0463